=== PATIENT | female | born 1955 | race Caucasian/White ===

== ENCOUNTER 2017-09-20 15:30 | Outpatient (RCR) | payer OTHER ==
--- NOTE | 2017-07-13 12:38 | PT INITIAL EVALUATION ---
MEDICAL DIAGNOSIS: B Knee Pain, L Patellar Maltracking TREATMENT DIAGNOSIS: B Knee Pain, L Patellar Maltracking DATE OF ONSET: 07/11/17 SUBJECTIVE: Quincy is a 62 year-old female presenting to physical therapy following recent onset of L knee pain and swelling. Pt rates pain as 0/10 at rest, but reports that pain increases throughout the day and is especially painful with ambulation down stairs and squatting reaching a 4/10. Pt is currently icing, elevating and taking ibuprofen to manage knee pain. Pt also sees a color strainer 2x/week to work on generalized strengthening. REHAB PROBLEM LIST: Increased Pain Decreased Strength Impaired Transfers Decreased Endurance Decreased Balance Decreased Function Decreased ADL's Decreased Mobility PREVIOUS MEDICAL HISTORY: See EMR OCCUPATION: Works in the [employer] at OBJECTIVE: Posture: L foot posture remarkable for medial arch collapse with full WB. ROM: L Knee ROM: 3-0-142, hip and ankle ROM WNL Strength: LE MMT: Hip: flexion B 4/5, ext L 4+/5, R 4/5, abd/add B 5/5. Knee: ext B 4/5 with R knee muscular failure with prolonged hold, flexion B 5/5. Ankle: PF/DF 5/5 B with excessive heel excursion on L with PF and increased instability. Glute Med L 4/5. Special Tests: All ligamentous and meniscal testing on L knee (-) Mobility: Pt has lateral patellar tracking with delayed VMO activation in 6/10 quad sets. With SAQ pt demonstrates lateral patellar tracking with associated pain which is decreased with compression and medial glide. Pt demonstrates mild knee valgus with transfers from seated to standing. Balance: Pt reports decreased balance B without any episodes of falls. Other Objective Findings: FOTO Knee: 40/50 ASSESSMENT: Pt shows signs and symptoms consistent with patellofemoral pain syndrome with lateral patellar tracking secondary to hip weakness, decreased quad activation, and medial arch collapse in the L LE. Physical therapy is indicated to address the above listed deficits to improve pt strength, pain and function with ADL's and recreational activities. Short Term Goals In 3 weeks pt will show good patellar tracking with equal quadriceps activation with 10/10 quad contractions for decreased pain and increased function with ADL 's. In 3 weeks pt will be able to demonstrate full squatting without knee valgus for improved alignment and function with ADL's. In 6 weeks pt will increase LE strength to 4+/5 in all major muscle groups for improved function with ADL's. In 6 weeks pt will improve FOTO Knee score to >45/50 indicating improved function with ADL's. Patient's Goals Decrease pain and improve function with ADL's and recreational exercise. PLAN: Patient to be seen for Manual Therapy/STM/MET Strengthening/condition Ice/Heat Range of Motion Ultrasound Work Hardening/Cond Stretching Iontophoresis Neuromuscular Re-ed Closed Chain Program Electrical Stim Posture/Body mechanics Gait Trg/Balance Trg Biofeedback Home Exercise Program Mech./Manual Traction Therapeutic Activities 2-3x/Week for 6 Weeks If you have any questions, comments, or concerns about this report or plan, please contact me at . Thank you, Angela Foster, PT, DPT, CLT MTDD
--- NOTE | 2017-08-31 17:56 | PT PLAN OF CARE ---
Physician: Brain Mendoza MD Patient is being seen: 2-3x/week Therapist: Angela Foster, PT, DPT, CLT Medical Diagnosis: B Knee Pain, L Patellar Maltracking Treatment Diagnosis: B Knee Pain, L Patellar Maltracking Date of Onset: 07/11/17 Date of Initial Evaluation: 07/13/17 Date patient was last seen: 08/31/17 Number of treatments: 10 Number of cancellations/No shows: 3 INTERVENTIONS: Manual Therapy/STM/MET Strengthening/condition Ice/Heat Range of Motion Ultrasound Work Hardening/Cond Stretching Iontophoresis Neuromuscular Re-ed Closed Chain Program Electrical Stim Posture/Body mechanics Gait Trg/Balance Trg Biofeedback Home Exercise Program Mech./Manual Traction Therapeutic Activities GOALS: In 3 weeks pt will show good patellar tracking with equal medial and lateral quadriceps activation with 10/10 quad contractions for decreased pain and increased function with ADL's. MET In 3 weeks pt will be able to demonstrate full squatting without knee valgus for improved alignment and function with ADL's. MET In 6 weeks pt will increase LE strength to 4+/5 in all major muscle groups for improved function with ADL's. In Progress In 6 weeks pt will improve FOTO Knee score to >45/50 indicating improved function with ADL's. In Progress PATIENT'S GOAL: Decrease pain and improve function with ADL's and recreational exercise. Status of Patient's Goals: 2/4 Goals MET, 2/4 In Progress Patient Compliance: Good Prognosis: Good Reasons for continuing therapy: Jolene shows good progress with progressive strengthening of the hip, knee and ankle musculature for improved overall biomechanical functioning in ADL's. Lingering deficits remain in deep squatting with lifting, as well as eccentric lowering going down stairs. At this time the L leg has progressed and is now stronger than the R leg and shows superior mechanics with movement. VMO activation is equal to that of the lateral quad on the L leg with no resting pain in the knee. Posture: L foot posture remarkable for medial arch collapse with full WB. ROM: L Knee ROM: 3-0-142, hip and ankle ROM WNL Strength: LE MMT: Hip: flexion B 5/5, ext B 4+/5, abd/add B 5/5. Knee: ext R 3+/ 5, L 5/5, flexion B 5/5. Ankle: PF/DF 5/5 B . Glute Med L 4+/5, R 3+/5. Outcome Measures: FOTO Knee: 41/50 Special Tests: All ligamentous and meniscal testing on L knee (-) Mobility: Pt has good patellar tracking with VMO activation in 10/10 quad sets. If you have any questions or concerns, please feel free to contact me at . Thank you, Angela Foster, PT, DPT, CLT REANNAD
[~2017-09-20 15:30] MED LIST: ESTR-25 PO; ESTR0.62 PO; FLUO40CA76 PO; PER PO; PRE1 PO
--- NOTE | 2017-09-21 10:04 | PT PLAN OF CARE ---
Physician: Brain Mendoza MD Patient is being seen: 2-3x/Week Therapist: Angela Foster, PT, DPT, CLT Medical Diagnosis: B Knee Pain, L Patellar Maltracking Treatment Diagnosis: B Knee Pain, L Patellar Maltracking Date of Onset: 07/11/17 Date of Initial Evaluation: 07/13/17 Date patient was last seen: 09/20/17 Number of treatments: 16 Number of cancellations/No shows: 3 INTERVENTIONS: Manual Therapy/STM/MET Strengthening/condition Ice/Heat Range of Motion Ultrasound Work Hardening/Cond Stretching Iontophoresis Neuromuscular Re-ed Closed Chain Program Electrical Stim Posture/Body mechanics Gait Trg/Balance Trg Biofeedback Home Exercise Program Mech./Manual Traction Therapeutic Activities GOALS: In 3 weeks pt will show good patellar tracking with equal quadriceps activation with 10/10 quad contractions for decreased pain and increased function with ADL 's. MET In 3 weeks pt will be able to demonstrate full squatting without knee valgus for improved alignment and function with ADL's. MET In 6 weeks pt will increase L LE strength to 4+/5 in all major muscle groups for improved function with ADL's. MET In 6 weeks pt will improve FOTO Knee score to equal to or greater than 45/50 indicating improved function with ADL's. MET PATIENT'S GOAL: Decrease pain and improve function with ADL's and recreational exercise. Status of Patient's Goals: 4/4 MET Patient Compliance: Excellent Prognosis: Good Reasons for continuing therapy: Quincy is to discharge from physical therapy at this time secondary to completion of 4/4 functional goals. Jolene shows good progress with L knee patellar tracking and strength resulting in improved functional mobility with ambulating stairs as well as recreational activities. Pt is to continue strengthening of the R knee at this time with her personalized living manager, and through her HEP, to decrease the load on the L knee and possibly consult surgical intervention if the R knee shows further signs of degeneration. Posture: L foot posture remarkable for medial arch collapse with full WB. ROM: L Knee ROM: 3-0-142, hip and ankle ROM WNL Strength: LE MMT: Hip: flexion B 5/5, ext B 4+/5, abd/add B 5/5. Knee: ext R 3+/ 5, L 5/5, flexion B 5/5. Ankle: PF/DF 5/5 B . Glute Med L 4+/5, R 3+/5. Outcome Measures: FOTO Knee: 45/50 Special Tests: All ligamentous and meniscal testing on L knee (-) Mobility: Pt has good patellar tracking with VMO activation in 10/10 quad sets. If you have any questions or concerns, please feel free to contact me at [phone]. Thank you, Angela Foster, PT, DPT, CLT MTDD
== END 2017-10-11 ==
LOC: PT 15:30
PROVIDERS: ATTEND Orthopaedic Surgery
DX: M25.562 Pain in left knee (principal); M22.2X2 Patellofemoral disorders, left knee; M25.561 Pain in right knee; M25.462 Effusion, left knee
CPT/HCPCS: 97162

== ENCOUNTER → 2018-02-22 | Outpatient (CLI) | payer OTHER ==
--- NOTE | 2018-02-22 14:03 | RADIOLOGY IMAGING REPORT ---
FACILITY: [facility] PATIENT NAME: Quincy Cui : 1955 MR: [id number] V: [id number] EXAM DATE: ORDERING PHYSICIAN: GIGI DICKINSON TECHNOLOGIST: Location: [facility] Patient: Quincy Cui : 1955 Visit/Account:[id number] Date of Sevice: 02/22/2018 Exam type: KNEE 3 VIEW LEFT History: Posterior medial knee pain, injury 02/21/2018 Comparison: None. Findings: There is no evidence of acute fracture-dislocation involving the left knee. There is mild joint spac e narrowing involving the medial compartment with small marginal osteophytes. There is moderate narr owing of the left patellofemoral joint and moderate size spur projecting along the superior aspect of the patella. There is a small bony/calcific density projecting just above the tibial spines on the AP view which could represent a potential loose body IMPRESSION: 1. Mild degenerative changes involving the medial compartment and moderate degenerative changes invo lving the patellofemoral compartment a left knee Potential small loose body projecting just above the tibial spines on the AP view Report Dictated By: Addie Partida MD at 02/22/2018 1:57 PM Report E-Signed By: Addie Partida MD at 02/22/2018 1:59 PM WSN:[email or web address]
== END ==
LOC: RAD 10:43
PROVIDERS: ATTEND Family Medicine
DX: M23.8X2 Other internal derangements of left knee (principal)

== ENCOUNTER → 2018-10-31 | Outpatient (CLI) | payer OTHER ==
--- NOTE | 2018-10-31 14:25 | RADIOLOGY IMAGING REPORT ---
FACILITY: [facility] [place] PATIENT NAME: Quincy Cui : 1955 MR: [id number] V: [id number] EXAM DATE: ORDERING PHYSICIAN: POORNIMA OLIVEIRA TECHNOLOGIST: Location: [facility] Patient: Quincy Cui : 1955 Visit/Account:[id number] Date of Sevice: 10/31/2018 CHEST PA LAT History: Cough x1 week FINDINGS: Comparison studies: Chest x-ray 12/05/2006 Tubes and Lines: None. Lungs and pleura: Well aerated. No evidence of focal consolidation or pleural effusions. Mediastinum: normal. Cardiac silhouette: normal . Osseous structures: There is mild wedge compression of the T12 vertebral body. I do not have a pre vious lateral view but on the AP projection this appears to be new since 2006 IMPRESSION: No acute cardiopulmonary pathology identified. Mild compression fracture T12. Acuity unknown but new from 2006 Report Dictated By: Konstantin Quintanilla MD at 10/31/2018 2:18 PM Report E-Signed By: Konstantin Quintanilla MD at 10/31/2018 2:20 PM WSN:[id number]
== END ==
LOC: RAD 13:07
PROVIDERS: ATTEND Family Medicine
DX: R05 Cough (principal)
CPT/HCPCS: 71046

== ENCOUNTER 2019-02-06 14:30 | Outpatient (RCR) | payer OTHER ==
--- NOTE | 2018-12-04 18:38 | PT INITIAL EVALUATION ---
MEDICAL DIAGNOSIS: right hip pain, trochanteric bursitis TREATMENT DIAGNOSIS: same DATE OF ONSET: 09/27/18 SUBJECTIVE: Jolene Cui presents to physical therapy with complaints of R hip pain that started approximately 2 months ago. She reports that she has tried everything and the pain persists. She reports that she has tried ice, medications, and exercise and nothing seems to relieve the pain. She reports that hip flexion mixed with ER relieves her pain in her R hip temporarily. She reports that she feels like the injury is staying the same and is not getting worse or getting better over the last few months. .Pain location is R trochanter bursae and described as aches. Pain scale is 4 on a ten point pain scale. REHAB PROBLEM LIST: Increased Pain Decreased ROM Decreased Strength Decreased Endurance Decreased Function Decreased ADL's PREVIOUS MEDICAL HISTORY: See EMR OCCUPATION: [employer] OBJECTIVE: Posture: She demonstrates normal posture mechanics. ROM: R hip IR: limited with empty end feel. The rest of her R hip motions: NIL with normal end feels. Strength: B hip flexion, abduction, extension: 4/5. B hip adduction, B knee flexion and extension, B ankle DF and PF: 5/5 Palpation: TTP: over R trochanter bursae Sensation: Intact L1-S1 Special Tests: Positive for R hip trochanteric bursitis Mobility: Independent Gait: She demonstrates normal gait mechanics and antalgic gait was not noticed before, during, or following the session. ASSESSMENT: Jolene will benefit from skilled physical therapy addressing the listed impairments to improve function and return to prior level of function. Short Term Goals 6 weeks: Pt will demonstrated abolished lateral hip pain and return to prior level of function to improve QOL. 6 weeks: Pt will demonstrate 5/5 strength with B hip abduction and extension to improve function and QOL. Patient's Goals get rid of the pain as quick as possible PLAN: Patient to be seen for Manual Therapy/STM/MET Strengthening/condition Range of Motion Spinal Stabilization Ultrasound Work Hardening/Cond Stretching Iontophoresis Neuromuscular Re-ed Closed Chain Program Home Exercise Program Therapeutic Activities 2x/Week for 6 Weeks If you have any questions, comments, or concerns about this report or plan, please contact me at . Thank you, Maximiliano Rosario, PT, DPT MTDD
--- NOTE | 2019-01-07 17:03 | PT PLAN OF CARE ---
Physician: Brain Mendoza MD Patient is being seen: 2x/week Therapist: Maximiliano Rosario, PT, DPT Medical Diagnosis: right hip pain, trochanteric bursitis Treatment Diagnosis: same Date of Onset: 09/27/18 Date of Initial Evaluation: 12/04/18 Date patient was last seen: 01/07/19 Number of treatments: 11 Number of cancellations/No shows: 1 INTERVENTIONS: Manual Therapy/STM/MET Strengthening/condition Range of Motion Spinal Stabilization Ultrasound Work Hardening/Cond Stretching Iontophoresis Neuromuscular Re-ed Closed Chain Program Home Exercise Program Therapeutic Activities GOALS: 6 weeks: Pt will demonstrated abolished lateral hip pain and return to prior level of function to improve QOL. 6 weeks: Pt will demonstrate 5/5 strength with B hip abduction and extension to improve function and QOL. PATIENT'S GOAL: get rid of the pain as quick as possible Status of Patient's Goals: Progressing well Patient Compliance: Good Prognosis: Good Reasons for continuing therapy: This is a progress note for Quincy Cui. She reports that her hip is doing well. She reports that she likes the compression over her bakers cyst the best. She reports that she feels like she is also getting stronger. Furthermore, she reports less swelling around her trochanteric bursae and less tender to touch as she can now lay on it. She is progressing well. She demonstrated increased B LE strength espcially gains within B hip musculature, core, and B knee musculature resulting in improved hip, knee, and ankle alignment. She has also demonstrated improvements with decreased burase swelling, increased function as she can do the stairs without any hip pain, and is able to lay on her burase side without pain for sleeping. Overall, she is progressing well and will discharge in the next 1-2 weeks when she is independent on her home exercise program. Posture: She demonstrates normal posture mechanics. ROM: R hip IR: limited with empty end feel. The rest of her R hip motions: NIL with normal end feels. Strength: B hip flexion, abduction, extension: 4+/5. B hip adduction, B knee flexion and extension, B ankle DF and PF: 5/5 Palpation: TTP: no longer TTP Mobility: Independent If you have any questions, please contact me at [phone]. Thank you, Maximiliano Rosario, PT, DPT [facility]
--- NOTE | 2019-02-06 15:15 | PT PLAN OF CARE ---
Physician: Brain Mendoza MD Patient is being seen: 2x/week Therapist: Maximiliano Rosario, PT, DPT Medical Diagnosis: right hip pain, trochanteric bursitis Treatment Diagnosis: same Date of Onset: 09/27/18 Date of Initial Evaluation: 12/04/18 Date patient was last seen: 02/06/19 Number of treatments: 19 Number of cancellations/No shows: 2 INTERVENTIONS: Manual Therapy/STM/MET Strengthening/condition Range of Motion Spinal Stabilization Ultrasound Work Hardening/Cond Stretching Iontophoresis Neuromuscular Re-ed Closed Chain Program Home Exercise Program Therapeutic Activities GOALS: 6 weeks: Pt will demonstrated abolished lateral hip pain and return to prior level of function to improve QOL. MET 6 weeks: Pt will demonstrate 5/5 strength with B hip abduction and extension to improve function and QOL. MET PATIENT'S GOAL: get rid of the pain as quick as possible Status of Patient's Goals: Progressing well Patient Compliance: Good Prognosis: Good Reasons for continuing therapy: This is a discharge note for Quincy Cui. She reports that she is doing well. She reports that she feels like her hip has recovered and was able to hike and walk and sleep without any pain in her hip. She reports that she feels comfortable with her home exercise program. She also wanted to learn more balance exercises as well. She has progressed well within PT demonstrating significant gains in core and B LE strength, abolished hip pain, independent with her home exercise program, and continued progress with better balance. She has met all of her goals. She is independent with her home exercise program and will be discharge to [facility]. Posture: She demonstrates normal posture mechanics. ROM: R hip IR: limited with empty end feel. The rest of her R hip motions: NIL with normal end feels. Strength: B hip flexion, abduction, extension: 5/5. B hip adduction, B knee flexion and extension, B ankle DF and PF: 5/5 Palpation: TTP: no longer TTP Mobility: Independent If you have any questions, please contact me at [phone]. Thank you, Maximiliano Rosario, PT, DPT [facility]
== END 2019-03-04 ==
LOC: PT 14:30
PROVIDERS: ATTEND Orthopaedic Surgery
DX: M25.551 Pain in right hip (principal); M70.61 Trochanteric bursitis, right hip
CPT/HCPCS: 97161